=== PATIENT | female | born 1960 | race Caucasian/White ===

== ENCOUNTER → 2023-12-02 15:28 | Outpatient (REF) | payer BC, SELFPAY | LOC: HWRCS 15:28 | PROVIDERS: ATTENDING PHYSICIAN Internal Medicine Cardiovascular Disease; FAMILY PHYSICIAN Physician Assistant Medical | DX: R00.2 Palpitations (principal); Z87.39 Personal history of other diseases of the musculoskeletal system and connective tissue | CPT/HCPCS: 93306 ==

== ENCOUNTER → 2024-01-31 13:36 | Outpatient (REF) | payer BC, SELFPAY | LOC: WDC 13:36 | PROVIDERS: ATTENDING PHYSICIAN Obstetrics & Gynecology Gynecology; FAMILY PHYSICIAN Physician Assistant Medical | DX: Z12.31 Encounter for screening mammogram for malignant neoplasm of breast (principal) | CPT/HCPCS: 77063; 77067 ==

== ENCOUNTER 2024-12-29 06:20 | Day surgery (SDC) | payer BC, SELFPAY | END 2024-12-29 14:23 | disposition home or self-care (01) | LOC: GI 06:20 | PROVIDERS: ATTENDING PHYSICIAN Specialist | DX: R13.10 Dysphagia, unspecified (principal); K44.9 Diaphragmatic hernia without obstruction or gangrene; K31.7 Polyp of stomach and duodenum; K90.0 Celiac disease; K20.90 Esophagitis, unspecified without bleeding; K29.50 Unspecified chronic gastritis without bleeding | CPT/HCPCS: 43239; 88305; 88342 ==

== ENCOUNTER → 2025-01-16 13:41 | Outpatient (REF) | payer BC, SELFPAY | LOC: RAD 13:41 | PROVIDERS: ATTENDING PHYSICIAN Student in an Organized Health Care Education/Training Program; FAMILY PHYSICIAN Physician Assistant Medical | DX: J98.4 Other disorders of lung (principal); M34.1 CR(E)ST syndrome | CPT/HCPCS: 71250 ==

== ENCOUNTER → 2025-02-06 06:47 | Outpatient (REF) | payer BC, SELFPAY | LOC: RSP 06:47 | PROVIDERS: ATTENDING PHYSICIAN Student in an Organized Health Care Education/Training Program; FAMILY PHYSICIAN Physician Assistant Medical | DX: J98.4 Other disorders of lung (principal); M34.1 CR(E)ST syndrome | CPT/HCPCS: 88738; 94010; 94727; 94729 ==

== ENCOUNTER → 2025-02-08 10:00 | Outpatient (REF) | payer BC, SELFPAY | LOC: WDC 10:00 | PROVIDERS: ATTENDING PHYSICIAN Obstetrics & Gynecology Gynecology; FAMILY PHYSICIAN Physician Assistant Medical | DX: R93.89 Abnormal findings on diagnostic imaging of other specified body structures (principal) | CPT/HCPCS: 76642; 77062; 77066 ==

== ENCOUNTER → 2025-02-19 08:10 | Outpatient (REF) | payer BC, SELFPAY ==
--- NOTE | 2025-02-19 13:31 | OID.BR.INTR ---
OID Breast Navigator - Initial
- -
Date of Contact: 02/19/25
Met with patient. Will follow up as needed per protocol.
== END ==
LOC: WDC 08:10
PROVIDERS: ATTENDING PHYSICIAN Obstetrics & Gynecology Gynecology; FAMILY PHYSICIAN Physician Assistant Medical
DX: N63.12 Unspecified lump in the right breast, upper inner quadrant (principal)
CPT/HCPCS: 19083; 88305; A4648